=== PATIENT | male | born 1950 | race Caucasian/White ===

== ENCOUNTER → 2017-12-07 | Outpatient (CLI) | payer BC ==
[~2017-12-07] MED LIST: CHLO25TA22 PO; GLYB2.5T8 PO; SACU1TAB PO
[2017-12-07 09:55] VITALS: BP 142/84
[2017-12-07 10:50] VITALS: BP 140/82
[2017-12-07 12:09] LABS: Basophils # (auto) 0.1 uL; Basophils % (auto) 0.7 % (0.0-2.0); Eosinophils # (auto) 0.2 uL; Eosinophils % (auto) 2.3 % (0.0-7.0); Hematocrit 49.5 % (41.0-53.0); Hemoglobin 16.9 g/dL (13.5-17.5); Lymphocytes % (auto) 23.1 % (10.0-50.0); Mean Corpuscular Hemoglobin 29.3 pg (28.0-32.0); Mean Corpuscular Hgb Conc. 34.2 g/dL (32.0-36.0); Mean Corpuscular Volume 85.7 fL (80.0-100.0); Monocytes # (auto) 0.6 uL; Monocytes % (auto) 7.3 % (0.0-12.0); Neutrophils # (auto) 5.7 uL; Neutrophils % (auto) 66.6 % (37.0-80.0); Platelet Count (auto) 291 10^3/uL (140-450); Red Blood Cells 5.78 10^6/uL (4.5-5.90); Red Cell Distribution Width 13.7 % (11.8-14.3); White Blood Cell 8.6 10^3/uL (4.4-10.8)
[2017-12-07 12:16] LABS: INR 0.94 (0.9-1.15); Partial Thromboplastin Time 24.9 sec (23.78-33.04); Prothrombin Time 10.1 sec (9.27-12.13)
[2017-12-07 12:32] LABS: Albumin 3.3 g/dL (3.4-5.0); Bilirubin, Total 0.3 mg/dL (0.2-1.0); Calcium 9.2 mg/dL (8.5-10.1); Potassium 4.1 mmol/L (3.5-5.1)
== END | disposition home or self-care (01) ==
LOC: Rad HDHVI 09:45
PROVIDERS: ATTEND Internal Medicine Cardiovascular Disease
DX: Z01.818 Encounter for other preprocedural examination (principal); I70.0 Atherosclerosis of aorta; E11.65 Type 2 diabetes mellitus with hyperglycemia
CPT/HCPCS: 36415; 71046; 80053; 82962; 83036; 85025; 85610; 85730; 93005; G0463

== ENCOUNTER 2017-12-15 09:14 | Inpatient (IN) | payer BC ==
[~2017-12-15] VITALS: Ht 167.6 cm; Wt 83.3 kg
[2017-12-15] MEDS ORDERED: ANGIOMAX 250 MG VIAL IV ONE (09:53)
[2017-12-15] MEDS ORDERED: IOHEXOL 350 MG/ML 100ML IJ ONE ×2 (09:54)
[2017-12-15] MEDS ORDERED: fentaNYL CITRATE 100 MCG/2 ML VL ONE (09:54)
[2017-12-15] MEDS ORDERED: SODIUM CHL 0.9% 50 ML ONE (09:54)
[2017-12-15] MEDS ORDERED: MIDAZOLAM HCL 1MG/1ML-2 ML VIAL ONE (09:54)
[2017-12-15] MEDS ORDERED: LIDOCAINE 2%HCL (LOCAL ANESTH.) INJ 20ML MDV ONE ×2 (09:54→09:55)
[2017-12-15] MEDS ORDERED: IODIXANOL 320MG/ML 100ML BTL IV ONE (10:01)
[2017-12-15] MEDS ORDERED: PRASUGREL HCL 10 MG TAB ONE (10:45)
[2017-12-15] MEDS ORDERED: FUROSEMIDE 20 MG/2 ML VIAL IV ONE (11:30)
[2017-12-15] MEDS ORDERED: SODIUM CHL 0.9% 500 ML IV ONE (11:31)
[2017-12-15] MEDS ORDERED: SACU1TAB PO (11:44)
[2017-12-15] MEDS ORDERED: GLYB2.5T8 PO (11:44)
[2017-12-15] MEDS ORDERED: CHLO25TA22 PO (11:44)
[2017-12-15] MEDS ORDERED: ZOLPIDEM TARTRATE 5 MG TAB PO PRN (11:45)
[2017-12-15] MEDS ORDERED: ACETAMINOPHEN 500 MG TAB PO PRN (11:45)
[2017-12-15] MEDS ORDERED: MORPHINE SULFATE 8mg/ml INJ SDV IV PRN (11:45)
[2017-12-15] MEDS ORDERED: NITROGLYCERIN 0.4 MG SL TAB SL PRN (11:45)
[2017-12-15] MEDS ORDERED: HYDROcodone-ACET 5/325MG TAB PO PRN (11:45)
[2017-12-15] MEDS ORDERED: DEXTROSE (50%) 50ML SYRG IV PRN (11:45)
[2017-12-15] MEDS ORDERED: ONDANSETRON HCL 4 MG/2 ML VIAL IV PRN (11:45)
[2017-12-15 13:48] VITALS: BP 139/81
[2017-12-15] MEDS: SODIUM CHLOR 0.9% PF (SALINE LOCK) 10ML VIAL/SYR IV SCH ×2 (14:41→21:52)
[2017-12-15] MEDS: InsuLIN REG 1unit/0.01ml Soln (100units/ml) SC SCH (16:36)
[2017-12-15] MEDS: ACCU-CHEK COMFORT CURVE STRIP VI SCH ×2 (16:36→21:52)
[2017-12-15 16:58] VITALS: BP 113/70
[2017-12-15 20:00] VITALS: BP 119/67
[2017-12-15 22:00] VITALS: BP 119/67
[2017-12-15] MEDS: SACUBITRIL VALSARTAN PO SCH (22:00)
[2017-12-15] MEDS ORDERED: InsuLIN REG 1unit/0.01ml Soln (100units/ml) SC SCH (22:00)
[2017-12-16 05:00] VITALS: BP 124/86
[2017-12-16] MEDS: SODIUM CHLOR 0.9% PF (SALINE LOCK) 10ML VIAL/SYR IV SCH (06:00)
[2017-12-16] MEDS: InsuLIN REG 1unit/0.01ml Soln (100units/ml) SC SCH (06:28)
[2017-12-16] MEDS: ACCU-CHEK COMFORT CURVE STRIP VI SCH (06:28)
[2017-12-16 09:00] VITALS: BP 110/70
[2017-12-16] MEDS: SACUBITRIL VALSARTAN PO SCH (10:00)
[2017-12-16] MEDS ORDERED: PRASUGREL HCL 10 MG TAB PO SCH (10:00)
[2017-12-16] MEDS ORDERED: GLYBURIDE 2.5 MG PO SCH (10:00)
[2017-12-16] MEDS ORDERED: glyBURIDE 5 MG TAB PO SCH (10:00)
[2017-12-16] MEDS ORDERED: ASPirin-EC 81 mg tab PO SCH (10:00)
[2017-12-16] MEDS ORDERED: Chlorthalidone 25 MG PO SCH (10:00)
== END 2017-12-16 11:00 | disposition home or self-care (01) | DRG 247 ==
LOC: CATH 09:14 → TELE-WESTW 09:15
PROVIDERS: ADMIT Internal Medicine Cardiovascular Disease; ATTEND Internal Medicine Cardiovascular Disease
PROC: 027036Z Dilation of Coronary Artery, One Artery with Three Drug-eluting Intraluminal Devices, Percutaneous Approach (ICD-10-PCS; principal; 2017-12-15)
PROC: B2111ZZ Fluoroscopy of Multiple Coronary Arteries using Low Osmolar Contrast (ICD-10-PCS; 2017-12-15)
PROC: 4A023N8 Measurement of Cardiac Sampling and Pressure, Bilateral, Percutaneous Approach (ICD-10-PCS; 2017-12-15)
PROC: B2151ZZ Fluoroscopy of Left Heart using Low Osmolar Contrast (ICD-10-PCS; 2017-12-15)
DX: I25.10 Atherosclerotic heart disease of native coronary artery without angina pectoris (principal); I10 Essential (primary) hypertension; I25.5 Ischemic cardiomyopathy; I25.2 Old myocardial infarction
CPT/HCPCS: 82962; 92928; 92929; 93458; 99152; C1874; J1815; J2250; Q9967

== ENCOUNTER → 2018-01-05 | Outpatient (CLI) | payer BC | END | disposition home or self-care (01) | LOC: Rad HDHVI 15:01 | PROVIDERS: ATTEND Internal Medicine Cardiovascular Disease | DX: I25.5 Ischemic cardiomyopathy (principal); E78.00 Pure hypercholesterolemia, unspecified; E11.9 Type 2 diabetes mellitus without complications | CPT/HCPCS: 93306 ==

== ENCOUNTER → 2018-02-14 | Outpatient (CLI) | payer BC ==
[~2018-02-14] MED LIST changes: +INSLANTI SC; +ROSU10TA16 PO
[2018-02-14 11:25] VITALS: BP 144/77
[2018-02-14 16:06] LABS: Basophils # (auto) 0.1 uL; Basophils % (auto) 0.8 % (0.0-2.0); Eosinophils # (auto) 0.3 uL; Hematocrit 38.4 % (41.0-53.0); Hemoglobin 13.4 g/dL (13.5-17.5); Lymphocytes # (auto) 2.2 uL; Lymphocytes % (auto) 23.6 % (10.0-50.0); Mean Corpuscular Hemoglobin 29.9 pg (28.0-32.0); Mean Corpuscular Hgb Conc. 34.9 g/dL (32.0-36.0); Mean Corpuscular Volume 85.6 fL (80.0-100.0); Monocytes # (auto) 0.8 uL; Monocytes % (auto) 8.5 % (0.0-12.0); Neutrophils # (auto) 5.9 uL; Neutrophils % (auto) 64.1 % (37.0-80.0); Nucleated Red Blood Cells % 0.3 %; Platelet Count (auto) 205 10^3/uL (140-450); Red Blood Cells 4.49 10^6/uL (4.5-5.90); Red Cell Distribution Width 15.4 % (11.8-14.3); White Blood Cell 9.2 10^3/uL (4.4-10.8)
[2018-02-14 16:12] LABS: BUN/Creatinine Ratio 21.7; Potassium 3.9 mmol/L (3.5-5.1)
[2018-02-14 16:22] LABS: INR 0.99 (0.9-1.15); Partial Thromboplastin Time 28.2 sec (23.78-33.04); Prothrombin Time 10.6 sec (9.27-12.13)
== END | disposition home or self-care (01) ==
LOC: CHF HDHVI 10:51
PROVIDERS: ATTEND Internal Medicine Cardiovascular Disease
DX: Z01.818 Encounter for other preprocedural examination (principal); D64.9 Anemia, unspecified; I10 Essential (primary) hypertension; R79.1 Abnormal coagulation profile; E11.9 Type 2 diabetes mellitus without complications; E78.00 Pure hypercholesterolemia, unspecified
CPT/HCPCS: 36415; 80048; 85025; 85610; 85730; 93005; G0463

== ENCOUNTER 2018-02-16 07:50 | Inpatient (IN) | payer BC ==
[~2018-02-16] VITALS: Ht 165.1 cm; Wt 86.0 kg
[2018-02-16] MEDS ORDERED: ceFAZolin 1GM/50ML 50 ML IV ONE ×2 (10:35→10:45)
[2018-02-16] MEDS ORDERED: LIDOCAINE 2%HCL (LOCAL ANESTH.) INJ 10ml MDV ONE ×2 (11:02→12:33)
[2018-02-16] MEDS ORDERED: IOHEXOL 350 MG/ML 100ML IJ ONE (11:02)
[2018-02-16] MEDS ORDERED: VANCOMYCIN HCL 1000 MG VL ONE (11:15)
[2018-02-16] MEDS ORDERED: fentaNYL CITRATE 100 MCG/2 ML VL ONE (11:16)
[2018-02-16] MEDS ORDERED: VANCOMYCIN 1GM/250ML 250 ML IV ONE (11:16)
[2018-02-16] MEDS ORDERED: MIDAZOLAM HCL 1MG/1ML-2 ML VIAL ONE (11:16)
[2018-02-16] MEDS ORDERED: FUROSEMIDE 20 MG/2 ML VIAL ONE (11:38)
[2018-02-16] MEDS ORDERED: IODIXANOL 320MG/ML 100ML BTL IV ONE (12:33)
[2018-02-16] MEDS ORDERED: LIDOCAINE W/ EPINEPHRINE 2% INJ 20ML VIAL ONE (13:02)
[2018-02-16] MEDS ORDERED: DEXTROSE (50%) 50ML SYRG IV PRN (14:30)
[2018-02-16] MEDS ORDERED: NITROGLYCERIN 0.4 MG SL TAB SL PRN (14:30)
[2018-02-16] MEDS ORDERED: ACETAMINOPHEN 325 MG TAB PO PRN (14:30)
[2018-02-16] MEDS ORDERED: MORPHINE SULFATE 4 MG/ML SYR/VIAL IV PRN (14:30)
[2018-02-16] MEDS: glyBURIDE 5 MG TAB PO SCH (16:44)
[2018-02-16] MEDS: HYDROcodone-ACET 5/325MG TAB PO PRN (16:45)
[2018-02-16] MEDS: ACCU-CHEK COMFORT CURVE STRIP VI SCH ×2 (16:45→22:04)
[2018-02-16] MEDS: InsuLIN REG 1unit/0.01ml Soln (100units/ml) SC SCH ×2 (16:53→22:05)
[2018-02-16 17:00] VITALS: BP 103/70
[2018-02-16 20:00] VITALS: BP 96/52
[2018-02-16 20:26] LABS: Basophils # (auto) 0.1 uL; Basophils % (auto) 0.4 % (0.0-2.0); Eosinophils # (auto) 0.1 uL; Eosinophils % (auto) 0.5 % (0.0-7.0); Hematocrit 36.4 % (41.0-53.0); Hemoglobin 12.4 g/dL (13.5-17.5); Lymphocytes # (auto) 1.3 uL; Lymphocytes % (auto) 8.2 % (10.0-50.0); Mean Corpuscular Hemoglobin 29.6 pg (28.0-32.0); Mean Corpuscular Hgb Conc. 34.1 g/dL (32.0-36.0); Mean Corpuscular Volume 86.9 fL (80.0-100.0); Monocytes # (auto) 1.5 uL; Monocytes % (auto) 9.3 % (0.0-12.0); Neutrophils # (auto) 13.4 uL; Neutrophils % (auto) 81.6 % (37.0-80.0); Platelet Count (auto) 183 10^3/uL (140-450); Red Blood Cells 4.19 10^6/uL (4.5-5.90); Red Cell Distribution Width 15.3 % (11.8-14.3); White Blood Cell 16.4 10^3/uL (4.4-10.8)
[2018-02-16 21:30] VITALS: BP 96/52
[2018-02-16] MEDS ORDERED: INSULIN LANTUS (GLARGINE) 1 /0.01ml (100units/ml) SC SCH (22:00)
[2018-02-16] MEDS ORDERED: VANCOMYCIN 1GM/250ML 250 ML IV SCH (22:00)
[2018-02-17] MEDS: ACCU-CHEK COMFORT CURVE STRIP VI SCH ×3 (06:46→17:31)
[2018-02-17] MEDS: InsuLIN REG 1unit/0.01ml Soln (100units/ml) SC SCH ×3 (06:47→17:30)
[2018-02-17 07:45] VITALS: BP 105/66
[2018-02-17] MEDS: HYDROcodone-ACET 5/325MG TAB PO PRN (08:05)
[2018-02-17 08:29] VITALS: BP 105/66
[2018-02-17] MEDS ORDERED: ROSUVASTATIN CALCIUM 10 MG PO SCH (10:00)
[2018-02-17] MEDS ORDERED: CHLORTHALIDONE PO SCH (10:00)
[2018-02-17] MEDS: glyBURIDE 5 MG TAB PO SCH (10:19)
[2018-02-17 12:02] VITALS: BP 111/68
[2018-02-17 16:19] VITALS: BP 132/82
[2018-02-17 16:27] VITALS: BP 132/82
== END 2018-02-17 19:45 | disposition home or self-care (01) | DRG 223 ==
LOC: CATH 07:50 → TELE-EAST 07:51
PROVIDERS: ADMIT Internal Medicine Cardiovascular Disease; ATTEND Internal Medicine Cardiovascular Disease
PROC: 0JH609Z Insertion of Cardiac Resynchronization Defibrillator Pulse Generator into Chest Subcutaneous Tissue and Fascia, Open Approach (ICD-10-PCS; principal; 2018-02-16)
PROC: 02HK3KZ Insertion of Defibrillator Lead into Right Ventricle, Percutaneous Approach (ICD-10-PCS; 2018-02-16)
PROC: 4A023N7 Measurement of Cardiac Sampling and Pressure, Left Heart, Percutaneous Approach (ICD-10-PCS; 2018-02-16)
PROC: 02HL3KZ Insertion of Defibrillator Lead into Left Ventricle, Percutaneous Approach (ICD-10-PCS; 2018-02-16)
PROC: 02H63KZ Insertion of Defibrillator Lead into Right Atrium, Percutaneous Approach (ICD-10-PCS; 2018-02-16)
PROC: B2111ZZ Fluoroscopy of Multiple Coronary Arteries using Low Osmolar Contrast (ICD-10-PCS; 2018-02-16)
PROC: 02H43KZ Insertion of Defibrillator Lead into Coronary Vein, Percutaneous Approach (ICD-10-PCS; 2018-02-16)
DX: I50.20 Unspecified systolic (congestive) heart failure (principal); I25.10 Atherosclerotic heart disease of native coronary artery without angina pectoris; I25.5 Ischemic cardiomyopathy; I73.9 Peripheral vascular disease, unspecified
CPT/HCPCS: 33225; 33249; 36415; 71045; 82962; 85025; 93005; 93458; 99152; 99153; A6257; J0690; J1815; J2001; J2250; Q9967

== ENCOUNTER → 2018-05-10 | Outpatient (CLI) | payer BC ==
[~2018-05-10] MED LIST changes: +IOHEXOL 350 MG/ML 100ML IJ ONE
[2018-05-10 10:00] VITALS: BP 138/73
[2018-05-10 10:35] VITALS: BP 141/73
== END | disposition home or self-care (01) ==
LOC: Rad HDHVI 08:40
PROVIDERS: ATTEND Internal Medicine Cardiovascular Disease
DX: I67.2 Cerebral atherosclerosis (principal); I11.0 Hypertensive heart disease with heart failure; I50.23 Acute on chronic systolic (congestive) heart failure; I25.5 Ischemic cardiomyopathy
CPT/HCPCS: 70470; 82565; 93306; G0463; Q9967

== ENCOUNTER → 2019-02-20 | Outpatient (CLI) | payer BC ==
[~2019-02-20] VITALS: Ht 167.6 cm; Wt 86.2 kg
[~2019-02-20] MED LIST changes: +ADENOSINE 72 MG in GIVE UN-DILUTED 0 ML IV ONE; +ADENOSINE 90 MG/30 ML INJ IV ONE; -IOHEXOL 350 MG/ML 100ML IJ ONE
== END | disposition home or self-care (01) ==
LOC: Rad HDHVI 08:33
PROVIDERS: ATTEND Internal Medicine Cardiovascular Disease
DX: I07.1 Rheumatic tricuspid insufficiency (principal); I25.5 Ischemic cardiomyopathy; I11.0 Hypertensive heart disease with heart failure; I50.23 Acute on chronic systolic (congestive) heart failure; R23.8 Other skin changes; E11.9 Type 2 diabetes mellitus without complications; I42.0 Dilated cardiomyopathy; Z95.820 Peripheral vascular angioplasty status with implants and grafts
CPT/HCPCS: 78452; 93005; 93306; 96374; 96375; A9500; J0153